=== PATIENT | female | born 1950 | race African-American/Black ===

== ENCOUNTER 2017-02-18 09:28 | Outpatient (CLI) | payer MEDICARE ==
--- NOTE | 2017-02-18 16:42 | Mammography Report ---
BILATERAL DIGITAL SCREENING MAMMOGRAM with CAD: 02/18/17 09:28:00 CLINICAL: Routine screening. COMPARISON:05/14/16 FINDINGS: The breasts are heterogeneously dense, which may obscure small masses. A right asymmetry on the MLO view requires additional imaging.No architectural distortion or suspicious calcifications.The left breast is negative. IMPRESSION: Right asymmetry requiring further workup. BI-RADS CATEGORY: 0 -- Additional Imaging Evaluation Required RECOMMENDATION: Recall for right lateralmedial and spot compression MLO views and right breast ultrasound if needed. ACR BI-RADS MAMMOGRAPHIC CODES: 0 = Needs additional imaging evaluation; 1 = Negative; 2 = Benign; 3 = Probably benign; 4 = Suspicious; 5 = Malignant; 6 = Known biopsy-proven malignancy COMMENT: 1. Dense breast tissue, i.e., adenosis, fibrocystic changes, etc., may obscure an underlying neoplasm. 2. Approximately 10% of cancers are not detected with mammography. 3. A negative mammography report should not delay biopsy if a clinically suspicious mass is present. COMMENT: Patient follow-up letters are generated via our [employer] application.
== END 2017-02-18 09:29 | disposition home or self-care (01) ==
LOC: MAMMO 09:28
PROVIDERS: ATTEND Internal Medicine Geriatric Medicine
DX: Z12.31 Encounter for screening mammogram for malignant neoplasm of breast (principal)
CPT/HCPCS: 77067; G0202

== ENCOUNTER 2017-03-20 08:30 | Day surgery (SDC) | payer MEDICARE ==
[2017-03-20 09:33] LABS: Hematocrit 34.4 % (30.3-42.9); Hemoglobin 11.5 gm/dl (10.1-14.3); Mean Corpuscular HGB Conc 33 % (30-34); Mean Corpuscular Hemoglobin 33 pg (28-32); Mean Corpuscular Volume 98 fl (79-97); Red Cell Distribution Width 14.5 % (13.2-15.2); White Blood Count 4.5 K/mm3 (4.5-11.0)
[2017-03-20 09:39] LABS: Platelet Count 74 K/mm3 (140-440)
[2017-03-20 11:00] LABS: INR 1.18 (0.87-1.13)
[2017-03-20 11:01] LABS: Partial Thromboplastin Time 34.8 Sec. (24.2-36.6)
[2017-03-20] MEDS ORDERED: VERSED IV ONE (11:09)
[2017-03-20] MEDS ORDERED: SUBLIMAZE IV ONE (11:09)
--- NOTE | 2017-03-20 12:13 | Cat Scan Report ---
CT BIOPSY BONE MARROW HISTORY: Thrombocytopenia, anemia, leukopenia. DESCRIPTION OF PROCEDURE: Informed consent was obtained. The patient's caregiver was present as an crop ranch hand. Sterile technique was utilized. Conscious sedation was accomplished with Versed and fentanyl. The patient was sedated for 20 minutes. Independent cardiorespiratory monitoring by RN. Intraobserver time of [address] guidance, an 11-gauge introducer needle was advanced to the right posterior iliac bone. Four bone marrow aspirations were obtained. One core biopsy was obtained. Pathology was present to handle the samples. No complications. IMPRESSION: Successful CT-guided bone marrow biopsy.
[2017-03-20 12:48] VITALS: BP 134/60
[2017-03-20 14:23] LABS: Basophils % (Manual) 0 % (0.0-1.8); Blastocytes % (Manual) 0 %
[2017-03-20 14:24] LABS: RBC Morphology Normal
[2017-03-20 14:25] LABS: Diff Status Complete; Platelet Estimate Appears Decreased
== END 2017-03-20 13:50 | disposition home or self-care (01) ==
LOC: EDSTATUS 08:30 → OPU 08:30
DX: D69.6 Thrombocytopenia, unspecified (principal); D64.9 Anemia, unspecified; D72.819 Decreased white blood cell count, unspecified
CPT/HCPCS: 36415; 38221; 77012; 84132; 85007; 85025; 85097; 85610; 85730; 88161; 88305; 88311; 88313; G0364; J2250; J3010

== ENCOUNTER 2017-03-27 13:38 | Outpatient (CLI) | payer MEDICARE ==
--- NOTE | 2017-03-27 14:32 | Mammography Report ---
RIGHT DIGITAL DIAGNOSTIC MAMMOGRAM : 03/27/17 13:38:00 CLINICAL: Recalled for asymmetry. COMPARISON:02/18/17 screening FINDINGS: ML and spot compression MLO views were performed. Satisfactory effacement of asymmetry on a spot view. The lateral view is negative. IMPRESSION: Negative Mammogram. BI-RADS CATEGORY: 1 -- Negative RECOMMENDATION: Routine mammographic screening in one year. ACR BI-RADS MAMMOGRAPHIC CODES: 0 = Needs additional imaging evaluation; 1 = Negative; 2 = Benign; 3 = Probably benign; 4 = Suspicious; 5 = Malignant; 6 = Known biopsy-proven malignancy COMMENT: 1. Dense breast tissue, i.e., adenosis, fibrocystic changes, etc., may obscure an underlying neoplasm. 2. Approximately 10% of cancers are not detected with mammography. 3. A negative mammography report should not delay biopsy if a clinically suspicious mass is present. COMMENT: Patient follow-up letters are generated via our [employer] application.
== END 2017-03-27 13:39 | disposition home or self-care (01) ==
LOC: MAMMO 13:38
PROVIDERS: ATTEND Internal Medicine Geriatric Medicine
DX: N63 Unspecified lump in breast (principal); I12.0 Hypertensive chronic kidney disease with stage 5 chronic kidney disease or end stage renal disease; N18.6 End stage renal disease; D64.9 Anemia, unspecified
CPT/HCPCS: G0206-RT

== ENCOUNTER 2017-05-01 10:43 | Outpatient (CLI) | payer MEDICARE ==
--- NOTE | 2017-05-01 15:45 | Ultrasound Report ---
Complete abdominal ultrasound: Splenomegaly; dialysis patient. Images of the liver are unremarkable. The spleen has a length of 9.3 cm and a width of 3 cm. It appears echogenically homogeneous. The gallbladder has been removed. The CBD diameter is 5 mm. The mid body and head of the pancreas appears unremarkable. In the tail region there is an echolucent circumscribed mass measuring 2.6 cm. A minimal amount of dependent echogenicity is noted. The right renal length is 7.3 cm. The kidney appears somewhat echogenic and there is poor cortical distinction. The left renal length is 8 cm and has a similar echo pattern. There are a couple scattered echodensities within the kidney raising suspicion of nonobstructing calculi. The transverse diameter of the proximal abdominal aorta is 2 cm. Impressions: 1. The overall splenic size is felt to be within normal range. 2. Pancreatic cyst. This was not apparent on prior ultrasound of December 2014. 3. Abnormal kidneys consistent with medical renal disease. Questionable nonobstructing left renal calculi. The right renal findings are comparable to those in 2015.
== END 2017-05-01 10:44 | disposition home or self-care (01) ==
LOC: US 10:43
DX: K86.89 Other specified diseases of pancreas (principal); R16.1 Splenomegaly, not elsewhere classified; I12.0 Hypertensive chronic kidney disease with stage 5 chronic kidney disease or end stage renal disease; N18.6 End stage renal disease; D63.1 Anemia in chronic kidney disease; Z90.49 Acquired absence of other specified parts of digestive tract
CPT/HCPCS: 76700

== ENCOUNTER 2017-05-21 23:48 | Emergency (ER) | payer MEDICARE ==
[2017-05-22 00:13] VITALS: BP 142/67
[2017-05-22 00:33] LABS: Basophils % (Auto) 0.7 % (0.0-1.8); Hematocrit 34.7 % (30.3-42.9); Hemoglobin 11.6 gm/dl (10.1-14.3); Mean Corpuscular HGB Conc 33 % (30-34); Mean Corpuscular Hemoglobin 33 pg (28-32); Mean Corpuscular Volume 98 fl (79-97); Red Blood Count 3.54 M/mm3 (3.65-5.03); Red Cell Distribution Width 15.9 % (13.2-15.2); White Blood Count 5.5 K/mm3 (4.5-11.0)
[2017-05-22 00:34] LABS: Platelet Count 73 K/mm3 (140-440)
[2017-05-22 00:44] LABS: INR 0.98 (0.87-1.13)
[2017-05-22 00:58] LABS: Anion Gap 21 mmol/L; BUN/Creatinine Ratio 5.67; Blood Urea Nitrogen 21 mg/dL (7-17); Calcium 9.3 mg/dL (8.4-10.2); Carbon Dioxide 27 mmol/L (22-30); Glucose 199 mg/dL (65-100); Potassium 3.8 mmol/L (3.6-5.0); Sodium 141 mmol/L (137-145)
== END 2017-05-22 05:30 | disposition left against medical advice (07) ==
LOC: ED 23:48
DX: R11.2 Nausea with vomiting, unspecified (principal); Z53.21 Procedure and treatment not carried out due to patient leaving prior to being seen by health care provider
CPT/HCPCS: 36415; 80048; 83690; 84484; 85025; 85610; 85730; 93005; 93010

== ENCOUNTER 2018-03-05 08:45 | Outpatient (CLI) | payer MEDICARE ==
--- NOTE | 2018-03-05 14:38 | Mammography Report ---
BILATERAL DIGITAL SCREENING MAMMOGRAM with CAD: 03/05/18 08:45:00 CLINICAL: Routine screening. COMPARISON:02/18/17 FINDINGS: The breasts are heterogeneously dense, which may obscure small masses. No mass, architectural distortion or suspicious calcifications. IMPRESSION: No mammographic evidence of malignancy. BI-RADS CATEGORY: 1 - - Negative RECOMMENDATION: Routine mammographic screening in one year. COMMENT: Patient follow-up letters are generated by our [employer] application.
== END 2018-03-05 08:46 | disposition home or self-care (01) ==
LOC: MAMMO 08:45
PROVIDERS: ATTEND Internal Medicine Geriatric Medicine
DX: Z12.31 Encounter for screening mammogram for malignant neoplasm of breast (principal)
CPT/HCPCS: 77067

== ENCOUNTER 2018-05-31 21:38 | Emergency (ER) | payer MEDICARE ==
[2018-05-31] MEDS ORDERED: ASPIRIN PO ONE (22:13)
[2018-05-31 22:59] LABS: Basophils % (Auto) 0.4 % (0.0-1.8); Eosinophils # (Auto) 0.1 K/mm3 (0.0-0.4); Eosinophils % (Auto) 1.4 % (0.0-4.3); Hematocrit 28.3 % (30.3-42.9); Hemoglobin 9.6 gm/dl (10.1-14.3); Lymphocytes # (Auto) 0.9 K/mm3 (1.2-5.4); Lymphocytes % (Auto) 20.4 % (13.4-35.0); Mean Corpuscular HGB Conc 34 % (30-34); Mean Corpuscular Hemoglobin 35 pg (28-32); Mean Corpuscular Volume 102 fl (79-97); Monocytes # (Auto) 0.3 K/mm3 (0.0-0.8); Monocytes % (Auto) 6.1 % (0.0-7.3); Red Blood Count 2.77 M/mm3 (3.65-5.03); Red Cell Distribution Width 15.8 % (13.2-15.2)
[2018-05-31 23:41] LABS: Calcium 8.6 mg/dL (8.4-10.2)
--- NOTE | 2018-06-01 01:00 | Emergency Department Report ---
HPI - General Chief Complaint: Arrhythmia/Palpitations Time Seen by Provider: 06/01/18 00:38 - HPI HPI: Room 10 The patient is a 68-year-old female presenting with chief complaint of palpitations fatigue and chest pain. The patient states this evening she felt as. Patient states she felt fatigue and had aching substernal chest pain last approximately 5 minutes. Patient denies shortness of breath, nausea/vomiting or diaphoresis. The patient states his symptoms have since resolved and she is currently asymptomatic. The patient states she was taken off of her Coumadin for her atrial fibrillation approximately one week ago secondary to thrombocytopenia. Patient states her last stress test occurring over one year ago but she has never had a cardiac catheterization Location: Chest Duration: [See above] Quality: Palpitations, aching Severity: Currently 0/10 Modifying factors: [see above] Context: [see above] Mode of transportation: [not driving] ED Past Medical Hx - Past Medical History Hx Hypertension: Yes Hx Deep Vein Thrombosis: Yes Hx Renal Disease: Yes (end-stage renal disease due for her first dialysis this month) - Surgical History Hx Cholecystectomy: Yes Additional Surgical History: kidney biopsy, fistula placed left arm in Oct - Family History Family history: no significant - Social History Smoking Status: Never Smoker Substance Use Type: None - Medications Home Medications: Home Medications Medication Instructions Recorded Confirmed Last Taken Type Pantoprazole [Protonix TAB] 40 mg PO DAILY 09/10/13 03/20/17 03/19/17 History Simvastatin 20 mg PO DAILY 09/10/13 03/20/17 03/19/17 History amLODIPine [Norvasc] 5 mg PO DAILY 09/10/13 03/20/17 03/20/17 History Folic Acid [Folvite] 1 mg PO QDAY 12/15/13 03/20/17 03/19/17 History Furosemide [Lasix] 20 mg PO DAILY 12/15/13 03/20/17 03/19/17 History Calcium Carbonate [Tums] 1,000 mg PO TID #90 tablet 12/18/13 03/20/17 03/19/17 Rx Losartan [Cozaar] 50 mg PO QDAY #30 tablet 12/18/13 03/20/17 03/20/17 Rx ED Review of Systems ROS: Stated complaint: PALPITATIONS Other details as noted in HPI Constitutional: denies: diaphoresis Eyes: denies: eye pain ENT: denies: throat pain Respiratory: denies: shortness of breath Cardiovascular: chest pain, palpitations Endocrine: no symptoms reported Gastrointestinal: denies: abdominal pain, nausea, vomiting Genitourinary: denies: dysuria Musculoskeletal: denies: back pain Neurological: denies: headache Physical Exam - Physical Exam Vital Signs: Vital Signs 05/31/18 05/31/18 21:47 22:06 Temperature 99.5 F 99.5 F Pulse Rate 103 H 91 H Respiratory 18 18 Rate Blood Pressure 141/67 141/67 O2 Sat by Pulse 95 97 Oximetry Physical Exam: GENERAL: The patient is well-developed well-nourished female lying on stretcher not appearing to be in acute distress. [] HEENT: Normocephalic. Atraumatic. Extraocular motions are intact. Patient has moist mucous membranes. NECK: Supple. No meningitic signs are noted. There is no adenopathy noted. CHEST/LUNGS: Clear to auscultation. There is no respiratory distress noted. HEART/CARDIOVASCULAR: Irregularly irregular. There is no tachycardia. There is a 3/6 systolic murmur ABDOMEN: Abdomen is soft, nontender. Patient has normal bowel sounds. There is no abdominal distention. SKIN: There is no rash. There is no edema. There is no diaphoresis. NEURO: The patient is awake, alert, and oriented. The patient is cooperative. The patient has normal speech MUSCULOSKELETAL: There is no evidence of acute injury. ED Course Vital Signs 05/31/18 05/31/18 21:47 22:06 Temperature 99.5 F 99.5 F Pulse Rate 103 H 91 H Respiratory 18 18 Rate Blood Pressure 141/67 141/67 O2 Sat by Pulse 95 97 Oximetry ED Medical Decision Making - Lab Data Result diagrams: 05/31/18 22:16 05/31/18 22:16 Laboratory Tests 05/31/18 05/31/18 22:16 22:16 WBC 4.3 L RBC 2.77 L Hgb 9.6 L Hct 28.3 L MCV 102 H MCH 35 H MCHC 34 RDW 15.8 H Lymph % (Auto) 20.4 [place] % (Auto) 6.1 Eos % (Auto) 1.4 Baso % (Auto) 0.4 Lymph # 0.9 L [place]pine # 0.3 Eos # 0.1 Baso # 0.0 Seg Neutrophils % 71.7 H Seg Neutrophils # 3.1 Sodium 138 Potassium 3.9 Chloride 96.7 L Carbon Dioxide 27 Anion Gap 18 BUN 43 H Creatinine 6.7 H Estimated GFR 6 BUN/Creatinine Ratio 6 Glucose 211 H Calcium 8.6 Troponin T 0.031 H - EKG Data -: EKG Interpreted by Me Rate: tachycardia (103 bpm) - EKG Data When compared to previous EKG there are: no significant change Interpretation: other (A. fib with RVR 103 bpm. PVC) - Medical Decision Making I discussed with the patient and family member at bedside my concern for her episode of chest pain in addition to her atrial fibrillation with rapid ventricular response. I explain that it is possible she may be having name myocardial infarction at this time. The patient continues to repeat that she feels better and does not wish to stay in the hospital. I explained that she can receive her dialysis while being admitted to the hospital. Patient still wishes to leave the hospital AGAINST MEDICAL ADVICE. Patient and family verbalized understanding of increased morbidity and/or mortality should she leave the hospital AGAINST MEDICAL ADVICE - Differential Diagnosis A. fib with RVR, ACS, pericarditis, GERD Critical care attestation.: If time is entered above; I have spent that time in minutes in the direct care of this critically ill patient, excluding procedure time. ED Disposition Clinical Impression: Atrial fibrillation with RVR, Chest pain, End stage renal disease, Anemia Disposition: 07 ELOPED Is pt being admited?: No Does the pt Need Aspirin: No Condition: Undetermined Instructions: Chest Pain (ED) Time of Disposition: 01:01 (patient leaving AMA with family)
[2018-06-01 01:02] LABS: Platelet Count 37 K/mm3 (140-440)
[2018-06-01 02:00] VITALS: BP 138/72
[2018-06-01 04:11] LABS: Chol/HDL Ratio 1.8 %
== END 2018-06-01 01:30 | disposition left against medical advice (07) ==
LOC: ED 21:38
DX: R00.2 Palpitations (principal); Z53.21 Procedure and treatment not carried out due to patient leaving prior to being seen by health care provider
CPT/HCPCS: 36415; 80048; 80061; 84484; 85025; 93005; 93010

== ENCOUNTER 2018-07-15 14:04 | Outpatient (CLI) | payer MEDICARE ==
[2018-07-15 14:21] LABS: Basophils % (Auto) 0.8 % (0.0-1.8); Eosinophils # (Auto) 0.1 K/mm3 (0.0-0.4); Eosinophils % (Auto) 2.3 % (0.0-4.3); Hematocrit 33.3 % (30.3-42.9); Hemoglobin 11.1 gm/dl (10.1-14.3); Lymphocytes # (Auto) 1.1 K/mm3 (1.2-5.4); Lymphocytes % (Auto) 34.5 % (13.4-35.0); Mean Corpuscular HGB Conc 33 % (30-34); Mean Corpuscular Hemoglobin 35 pg (28-32); Mean Corpuscular Volume 104 fl (79-97); Monocytes # (Auto) 0.2 K/mm3 (0.0-0.8); Monocytes % (Auto) 6.7 % (0.0-7.3); Red Cell Distribution Width 15.9 % (13.2-15.2)
[2018-07-15 14:22] LABS: Platelet Count 34 K/mm3 (140-440)
== END 2018-07-15 14:05 | disposition home or self-care (01) ==
LOC: LAB 14:04
PROVIDERS: ATTEND Internal Medicine Nephrology
DX: I12.0 Hypertensive chronic kidney disease with stage 5 chronic kidney disease or end stage renal disease (principal); N18.6 End stage renal disease; K21.9 Gastro-esophageal reflux disease without esophagitis; Z90.49 Acquired absence of other specified parts of digestive tract; Z87.891 Personal history of nicotine dependence; Z99.2 Dependence on renal dialysis; Z98.890 Other specified postprocedural states; Z86.2 Personal history of diseases of the blood and blood-forming organs and certain disorders involving the immune mechanism; Z86.718 Personal history of other venous thrombosis and embolism
CPT/HCPCS: 36415; 85025